=== PATIENT | male | born 1960 | race Caucasian/White ===

== ENCOUNTER 2020-04-26 06:48 | Observation (INO) | payer OTHER ==
[~2020-04-26] VITALS: Ht 175.3 cm; Wt 81.8 kg
--- NOTE | 2020-04-26 07:06 | NUR ---
PT BROUGHT BACK FROM TRIAGE WITH CHIEF COMPLAINT OF FATIGUE, "wHOLE BODY PRESSURE", UNABLE TO SLEEP WORSENING FOR 3 MONTHS. HAS SEEN CARDIO MD BUT LAST NIGHT COMPLETELY UNABLE TO SLEEP AND PRESSURE IN CHEST AND HEAD. DENIES NV, FEVER, RESPIRATORY SYMPTOMS, RECENT TRAUMA. PT STATES OVERALL FEELS BETTER NOW BUT COMCERNED.
--- NOTE | 2020-04-26 07:12 | NUR ---
PT REPORTS TAKING ASA AND NITRO SL LAST NIGHT WITH NO RELIEF
[2020-04-26] MEDS ORDERED: ASPIRIN 81 MG TABLET CHEW ONE (07:21)
[2020-04-26 07:30] LABS: BASOPHILS # (AUTO) 0.04 x10^3/uL (0-0.1); BASOPHILS % (AUTO) 1 % (0-1); EOSINOPHILS % (AUTO) 5 % (1-7); LYMPHOCYTES # (AUTO) 1.44 x10^3/uL (1-3.4); LYMPHOCYTES % (AUTO) 23 % (22-44); MD NO; MEAN CORPUSCULAR HEMOGLOBIN 30.9 pg (27.5-34.5); MEAN CORPUSCULAR HGB CONC 33.1 g/dL (33.2-36.2); MEAN CORPUSCULAR VOLUME 93.2 fL (81-97); MONOCYTES # (AUTO) 0.45 x10^3/uL (0.2-0.8); MONOCYTES % (AUTO) 7 % (2-9); NEUTROPHILS # (AUTO) 4.07 x10^3/uL (1.8-6.8); NEUTROPHILS % (AUTO) 65 % (42-75); PLATELET COUNT 162 x10^3/uL (130-400); RED BLOOD COUNT 4.95 x10^6/uL (4.38-5.82); RED CELL DISTRIBUTION WIDTH 13.2 % (9.4-14.8)
[2020-04-26] MEDS ORDERED: ASPIRIN 81 MG TABLET CHEW PO ONE (07:30)
[2020-04-26] MEDS ORDERED: SODIUM CHLORIDE FLUSH 10ML SYR IVF ONE (07:30)
[2020-04-26 07:39] LABS: ALBUMIN 3.9 g/dL (3.4-5.0); ANION GAP 6 mmol/L (5-15); CALCIUM 9.1 mg/dL (8.5-10.1); CHLORIDE 107 mmol/L (98-107); CREATININE 1.02 mg/dL (0.7-1.3)
[2020-04-26 07:43] LABS: TROPONIN I < 0.015 ng/mL (0.000-0.045)
--- NOTE | 2020-04-26 08:04 | NUR ---
ERMD AT BEDSIDE TO DISCUSS POC.
--- NOTE | 2020-04-26 08:33 | NUR ---
Report called to Scot SHEN. Pt aware of POC.
[2020-04-26] MEDS ORDERED: D5%-0.45NACL+KCL 20MEQ 1,000 ML IV SCH (10:27)
[2020-04-26 10:28] VITALS: BP 133/78
[2020-04-26] MEDS ORDERED: NITROGLYCERIN 0.4 MG BOTTLE (25 TABS) SL PRN (10:30)
[2020-04-26] MEDS ORDERED: BISACODYL 10 MG SUPP PR PRN (10:30)
[2020-04-26] MEDS ORDERED: ENALAPRILAT 1.25 MG/ML, 2ML IVPush PRN (10:30)
[2020-04-26] MEDS ORDERED: ACETAMINOPHEN 325 MG TABLET PO PRN (10:30)
[2020-04-26] MEDS ORDERED: ONDANSETRON ODT 4 MG PO PRN (10:30)
[2020-04-26] MEDS ORDERED: LABETALOL 5MG/ML, 20ML IVPush PRN (10:30)
[2020-04-26] MEDS ORDERED: DOCUSATE 100 MG CAPSULE PO PRN (10:30)
[2020-04-26] MEDS ORDERED: ONDANSETRON 2MG/ML, 2ML IVPush PRN (10:30)
[2020-04-26] MEDS ORDERED: POLYETHYLENE GLYCOL 17 GM PACKET PO PRN (10:30)
[2020-04-26 12:58] VITALS: BP 136/78
[2020-04-26 13:47] VITALS: BP_SYST 122; BP_SYST 132; BP_SYST 142; BP_DIAS 77; BP_DIAS 83; BP_DIAS 89
[2020-04-26] MEDS ORDERED: MAGNESIUM SULFATE PMX 2GM/50ML 50 ML IV ONE (14:30)
[2020-04-26] MEDS ORDERED: LIDOCAINE-MPF 1%, 5ML ONE (15:06)
[2020-04-26] MEDS ORDERED: HEPARIN 1,000 UNITS/ML, 10ML ONE (15:06)
[2020-04-26] MEDS ORDERED: MIDAZOLAM 1 MG/ML, 5ML ONE (15:06)
[2020-04-26] MEDS ORDERED: VERAPAMIL 2.5 MG/ML, 2ML ONE (15:06)
[2020-04-26] MEDS ORDERED: BIVALIRUDIN 250 MG ONE (15:06)
[2020-04-26] MEDS ORDERED: TICAGRELOR 90 MG TABLET ONE (15:06)
[2020-04-26] MEDS ORDERED: FENTANYL PF 100 MCG/2ML ONE (15:06)
[2020-04-26] MEDS ORDERED: NITROGLYCERIN 30 MCG/ML, 20ML VIAL ONE (15:09)
[2020-04-26] MEDS: SODIUM CHLORIDE 0.9% 1,000 ML IV SCH ×2 (17:19→17:47)
[2020-04-26 18:31] VITALS: BP 127/72
[2020-04-27 00:28] VITALS: BP 101/63
[2020-04-27] MEDS ORDERED: ASPIRIN 325 MG TABLET EC PO SCH (06:00)
[2020-04-27 06:32] LABS: BASOPHILS # (AUTO) 0.05 x10^3/uL (0-0.1); BASOPHILS % (AUTO) 1 % (0-1); EOSINOPHILS % (AUTO) 5 % (1-7); LYMPHOCYTES # (AUTO) 1.56 x10^3/uL (1-3.4); LYMPHOCYTES % (AUTO) 24 % (22-44); MD NO; MEAN CORPUSCULAR HEMOGLOBIN 30.9 pg (27.5-34.5); MEAN CORPUSCULAR HGB CONC 33.3 g/dL (33.2-36.2); MEAN CORPUSCULAR VOLUME 92.9 fL (81-97); MEAN PLATELET VOLUME 9.3 fL (7.4-10.4); MONOCYTES # (AUTO) 0.54 x10^3/uL (0.2-0.8); MONOCYTES % (AUTO) 8 % (2-9); NEUTROPHILS # (AUTO) 4.16 x10^3/uL (1.8-6.8); NEUTROPHILS % (AUTO) 63 % (42-75); PLATELET COUNT 147 x10^3/uL (130-400); RED BLOOD COUNT 4.63 x10^6/uL (4.38-5.82); RED CELL DISTRIBUTION WIDTH 13.1 % (9.4-14.8)
[2020-04-27 06:42] LABS: ANION GAP 5 mmol/L (5-15); CALCIUM 8.6 mg/dL (8.5-10.1); CHLORIDE 111 mmol/L (98-107); CHOLESTEROL, TOTAL 172 mg/dL (140-239); CREATININE 0.98 mg/dL (0.7-1.3)
[2020-04-27 06:44] LABS: CHOL/HDL RATIO 4.3; HDL CHOL % 23 % (26-37); HDL CHOLESTEROL (DIRECT) 40 mg/dL (40-60); LDL CHOLESTEROL,CALCULATED 107 mg/dL (54-169); LDL/HDL RATIO 2.7 (0.5-3.0); TRIGLYCERIDES 124 mg/dL (50-200); VLDL CHOLESTEROL 25 mg/dL (0-25)
[2020-04-27 08:26] VITALS: BP 122/75
[2020-04-27] MEDS ORDERED: ATOR40TA78 PO (10:26)
[2020-04-27] MEDS ORDERED: ASPI81TA45 PO (10:26)
[2020-04-27 12:42] VITALS: BP 128/77
== END 2020-04-27 16:40 | disposition home or self-care (01) ==
LOC: ED 07:32 → INTOOBSV 09:33 → 5SO 09:33
PROVIDERS: ADMIT Emergency Medicine; ATTEND Emergency Medicine
DX: R07.89 Other chest pain (principal); I10 Essential (primary) hypertension; I25.110 Atherosclerotic heart disease of native coronary artery with unstable angina pectoris; I45.10 Unspecified right bundle-branch block; Z79.82 Long term (current) use of aspirin
CPT/HCPCS: 36415; 71045; 80048; 80061; 82040; 83735; 84443; 84484; 85025; 85379; 93005; 93458; 96361; 96365; 96366; 99156; 99285; C1769; C1894; G0378; J1644; J2250; J3010; J3475; J3480; J7030; Q9967; J0583

== ENCOUNTER 2020-05-02 17:28 | Outpatient (CLI) | payer OTHER ==
[~2020-05-02 17:28] MED LIST: ASPI81TA45 PO; ATOR40TA78 PO
[2020-05-02] MEDS ORDERED: OMNIPAQUE 350 MG/ML, 75ML BOTTLE ONE (18:00)
== END 2020-05-02 23:59 | disposition home or self-care (01) ==
LOC: RAD 17:28
PROVIDERS: ATTEND Internal Medicine Cardiovascular Disease
DX: R91.1 Solitary pulmonary nodule (principal)
CPT/HCPCS: 71275; Q9967